=== PATIENT | female | born 2000 | race Caucasian/White ===

== ENCOUNTER 2022-03-03 22:48 | Emergency (ER) | payer OTHER ==
[2022-03-04 01:37] LABS: HEMOGLOBIN 12.1 gm/dl (12.3-15.3); RED BLOOD COUNT 4.04 M/UL (4.00-5.10); WHITE BLOOD COUNT 4.7 K/UL (4.5-11.0)
[2022-03-04 01:58] LABS: BUN/CREATININE RATIO 26 (0-10)
[2022-03-04] MEDS ORDERED: KEPPRA500 MG PO (03:56)
[2022-03-04] MEDS ORDERED: DIASTAT ACUDIA1 EAC1 PR (03:56)
== END 2022-03-04 04:28 | disposition home or self-care (01) ==
LOC: ER1 22:48
PROVIDERS: Student in an Organized Health Care Education/Training Program
DX: G40.909 Epilepsy, unspecified, not intractable, without status epilepticus (principal)
CPT/HCPCS: 70450; 71045; 80053; 81001; 83605; 85025; 87040; 96374; 99284; J3360